=== PATIENT | male | born 1995 | race Caucasian/White ===

== ENCOUNTER 2021-06-29 17:54 | Outpatient (REF) | payer OTHER, SELFPAY ==
--- NOTE | ~2021-06-29 | MR_ITS ---
EXAMINATION: MR SHOULDER WITHOUT CONTRAST, RIGHT CLINICAL INFORMATION: Right shoulder pain and decreased range of motion. COMPARISON: None. TECHNIQUE: MRI of the shoulder without contrast was performed on a high-field scanner. FINDINGS: ROTATOR CUFF: Mild supraspinatus tendinosis with distal bursal surface partial tearing measuring 0.9 x 1.4 cm (AP by ML). No full-thickness rotator cuff tendon defect. No muscle atrophy or fatty infiltration. BICEPS: Normal. CORACOACROMIAL ARCH: The undersurface of the acromion is curved with no subacromial spur. Mild acromioclavicular arthrosis. LABRUM/CAPSULE: Normal. GLENOHUMERAL JOINT/MARROW: Mild degenerative cystic change within the greater tuberosity. MR/MR shoulder RT wo con IMPRESSION: 1. Mild supraspinatus tendinosis with distal bursal surface partial tearing measuring 0.9 x 1.4 cm (AP by ML). 2. Mild acromioclavicular arthrosis.
--- NOTE | ~2021-06-29 | MR_ITS ---
EXAMINATION: MR KNEE WITHOUT CONTRAST, LEFT CLINICAL INFORMATION: Left knee pain and numbness. COMPARISON: None. TECHNIQUE: MRI of the knee without contrast was performed using routine sequences on a high-field scanner. FINDINGS: MENISCI: Medial Meniscus: Intact. Lateral Meniscus: Intact. LIGAMENTS: Cruciate: Intact. Collateral: Intact. EXTENSOR MECHANISM: Intact. ARTICULAR CARTILAGE/BONE: Patellofemoral Compartment: Normal. Medial Compartment: Normal. Lateral Compartment: Normal. JOINT FLUID AND BURSAE: Normal. MR/MR knee LT wo con IMPRESSION: No acute meniscal or ligamentous injury. Unremarkable examination.
== END 2021-06-29 17:55 | disposition home or self-care (01) ==
LOC: HO.MRI 17:54
PROVIDERS: PCP Internal Medicine; Visit Provider Internal Medicine
DX: M25.511 Pain in right shoulder (principal); M25.562 Pain in left knee; G89.29 Other chronic pain
CPT/HCPCS: 73221; 73721

== ENCOUNTER 2021-09-10 07:07 | Outpatient (REF) | payer OTHER, SELFPAY ==
--- NOTE | ~2021-09-10 | XR_ITS ---
EXAMINATION: XR SHOULDER, RIGHT CLINICAL INFORMATION: Right shoulder pain. COMPARISON: 06/29/2021 TECHNIQUE: Three views of the right shoulder. FINDINGS: There is no evidence of acute fracture or dislocation of the right shoulder. Mild inferior spurring glenohumeral joint with joint space being maintained. No significant degenerative change of the acromioclavicular joint noted for some possible mild narrowing. No elevation of the coracoclavicular space. No evidence of calcific tendinitis. XR/XR shoulder RT min 2V IMPRESSION: No significant abnormality of the right shoulder identified.
== END 2021-09-10 07:08 | disposition home or self-care (01) ==
LOC: HO.HOSX 07:07
PROVIDERS: Visit Provider Physician Assistant
DX: M75.101 Unspecified rotator cuff tear or rupture of right shoulder, not specified as traumatic (principal); M12.811 Other specific arthropathies, not elsewhere classified, right shoulder
CPT/HCPCS: 73030; 99202; J1040

== ENCOUNTER 2022-06-24 22:14 | Emergency (ER) | payer OTHER, SELFPAY ==
[2022-06-24 22:25] VITALS: BP 103/68; PULSE 55; RESP 18; TEMP 36.6; O2SAT 98; BMI 26.6
== END 2022-06-25 01:07 | disposition left against medical advice (07) ==
LOC: HO.ED 06-25 01:04
PROVIDERS: Emergency Provider Emergency Medicine; PCP Internal Medicine
DX: S05.02XA Injury of conjunctiva and corneal abrasion without foreign body, left eye, initial encounter (principal); X58.XXXA Exposure to other specified factors, initial encounter; Y93.9 Activity, unspecified; Y92.9 Unspecified place or not applicable; Y99.9 Unspecified external cause status
CPT/HCPCS: 99281

== ENCOUNTER 2023-12-18 15:36 | Outpatient (AMB) | payer OTHER, SELFPAY ==
--- NOTE | 2023-12-18 16:26 | A.OFFPC_ITS ---
Vital Signs 12/18/23 16:28 Height 5 ft 6 in Weight 181 lb BMI 29.2 BP 100/64 Blood Pressure Location Lt brachial Position Sitting Pulse 62 Pulse Source Pulse Oximeter Pulse Oximetry (%) 97 Oxygen Delivery Method Room Air Intake Visit Reasons: Recurrent cold sores Intake Note: Pt is here today for recurrent cold sores Allergies Seasonal Allergies Allergy (Mild, Verified 12/21/23 18:06) hives Medication List - Last Reconciled 12/21/23 by Joanna Wells MD acyclovir 5% 1 appl topical 6XD 7 days valacyclovir 500 mg PO DAILY Tobacco use date assessed: 12/18/23 Dental Screening Dental Screen Date: 12/18/23 Did you have a dental visit in the last 12 months?: No Was dental information given to patient?: Patient has dentist HPI Recurrent cold sores HPI Details 28-year-old male with recurrent cold sor es, here needing refills on his valacyclovir and acyclovir ointment. He has been having recurrent cold sores now for several years, had frequent outbreaks when he tried stopping his medications. Has not had any other lesions other than on his lower lip. [facility] Medical History Recurrent cold sores Chronic right shoulder pain Left anterior knee pain Family History Paternal Grandfather Diabetes mellitus Social History Housing: House Alcohol intake: current Patient Tobacco Use Status: Never used Tobacco e-Cigarette/Vaping Use: Never Used Second Hand Smoke Exposure: No service: Yes Current occupational status: employed Current occupation: rt handed/ Cognitive needs: No Hearing needs: No Vision needs: No Questionnaire PHQ-9 Over the last 2 weeks, how often have you been bothered by any of the following problems? 1. Little interest or pleasure in doing things: not at all 2. Feeling down, depressed, or hopeless: not at all 3. Trouble falling or staying asleep, or sleeping too much: not at all 4. Feeling tired or having little energy: not at all 5. Poor appetite or overeating: not at all 6. Feeling bad about yourself - or that you are a failure or have let yourself or your family down: not at all 7. Trouble concentrating on things, such as reading the newspaper or watching television: not at all 8. Moving or speaking so slowly that other people could have noticed. Or the opposite - being so fidgety or restless that you have been moving around a lot more than usual: not at all 9. Thoughts that you would be better off or of hurting yourself in some way: not at all Total score: 0 Depression Screening Interpretation: Negative Depression Screening Done: Yes 25130 - PHQ-9 Billing: Yes Source: Developed by Drs. Leonel Pringle, Elinor Rene, Christiano Cook and colleagues, with an educational mao from [employer]. Thrive Questionnaire Date Thrive assessed: 12/18/23 I am a: Patient What is your living situation today?: I have a steady place to live Within the past 12 months, did the food you bought not last and you didn't have the money to get more?: Never true Within the past 12 months, did you worry whether your food would run out before you got money to buy more?: Never true Do you have trouble paying for medicines?: No Do you have trouble getting transportation to medical appointments?: No Do you have trouble paying your heating and electricity bill?: No Do you have trouble taking care of your child, family member or friend?: No Do you have trouble with day-to-day activities such as bathing, preparing meals, shopping, managing finances, etc.?: No Are you currently unemployed and looking for a job?: No Are you interested in more education?: No THRIVE Score: 0 AUDIT C Alcohol Use Questionnaire (AUDIT-C) 1. How often do you have a drink containing alcohol?: Monthly or less 2. How many drinks containing alcohol do you have on a typical day when you are drinking?: 1 or 2 3. How often do you have six or more drinks on one occasion?: Never Total Score: 1 JENNIFER-7 AMB Questionnaire JENNIFER-7 Date JENNIFER - 7 assessed: 12/18/23 Feeling nervous, anxious, or on edge: 0 = Not at all Not being able to stop or control worryin = Not at all Worrying too much about different things: 0 = Not at all Trouble relaxin = Not at all Being so restless that it is hard to sit still: 0 = Not at all Becoming easily annoyed or irritable: 0 = Not at all Feeling afraid as if something awful might happen: 0 = Not at all Total JENNIFER-7 score (0-4 normal; 5-9 mild; 10-14 moderate; 15-21 severe): 0 Source: Developed by Drs. Leonel Pringle, Elinor Rene, Christiano Cook and colleagues, with an educational mao from [employer]. JENNIFER-7 Assessment Billing JENNIFER-7 Assessment Tool: JENNIFER-7 Assessment 56739 Review of Systems Const Denies body aches Eyes Reports no additional complaints ENT Denies nasal congestion and Denies nasal discharge Card Denies chest pain, Denies lightheadedness and Denies dyspnea Resp Denies chest congestion, Denies cough, Denies dyspnea and Denies wheezing GI Denies abdominal pain, Denies change in bowel habits and Denies heartburn Reports no additional complaints, Denies dysuria, Denies urinary frequency and Denies urinary urgency Skin/Breast Reports as per HPI Endo Reports no additional complaints John/Lymph Denies easy bruising Aller/Immun Denies seasonal rhinorrhea and Denies wheezing Physical exam (Primary Care) Vital Signs: Last Vital Signs Pulse 62 12/18/23 16:28 BP 100/64 12/18/23 16:28 Pulse Ox 97 12/18/23 16:28 Oxygen Delivery Method Room Air 12/18/23 16:28 BMI result Body Mass Index 29.2 Tobacco/Smoking Status: Tobacco use Status Tobacco use date assessed 12/18/23 12/18/23 16:33 Patient Tobacco Use Status Never used Tobacco 12/18/23 16:33 e-Cigarette/Vaping Use Never Used 12/18/23 16:33 PHQ-9: PHQ-9 Score PHQ-9: Total score 0 12/18/23 16:43 Depression Screening Interpretation: Negative Thrive Assessment: Date of Thrive Assessment Date Thrive assessed 12/18/23 12/18/23 16:33 Const General: comfortable, no acute distress and alert Nutritional Appearance: average body habitus Orientation/consciousness: patient oriented x3 HENMT Mouth: Normal oral and palatal mucosa present, oropharynx normal and moist mucous membranes Neck Neck: Yes full ROM, Yes no lymphadenopathy and Yes supple Skin General skin exam: no rashes or lesions noted Neuro General: patient oriented x3 Assessment and Plan Assessment & Plan (1) Recurrent cold sores: Code(s): 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 Plan: Refill sent for valacyclovir and acyclovir ointment, advised to also start taking lysine supplement that may help slow down her prevent growth of herpes simplex type 1 virus Medications: Refilled acyclovir 5% 1 appl topical 6XD 7 days 15 grams 6RF 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 valacyclovir 500 mg PO DAILY 90 tabs 4RF 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 acyclovir 5% 1 appl topical 6XD 7 days 15 grams 6RF 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 valacyclovir 500 mg PO DAILY 90 tabs 4RF 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
[2023-12-18 16:28] VITALS: BP 100/64; PULSE 62; O2SAT 97; BMI 29.2
== END 2023-12-18 17:00 | disposition home or self-care (01) ==
PROVIDERS: PCP Internal Medicine; Visit Provider Internal Medicine
DX: B00.1 Herpesviral vesicular dermatitis (principal)
CPT/HCPCS: 99213

== ENCOUNTER 2025-06-02 09:09 | Outpatient (AMB) | payer OTHER, SELFPAY ==
--- NOTE | 2025-06-02 09:12 | A.OFFPC_ITS ---
Vital Signs 06/02/25 09:13 Height 5 ft 6 in Weight 176 lb 4 oz BMI 28.4 BP 118/78 Blood Pressure Location Lt brachial Position Sitting Respiration 16 Pulse 55 Pulse Source Pulse Oximeter Temp 98.4 F Temp Source Oral Pulse Oximetry (%) 97 Oxygen Delivery Method Room Air Intake Visit Reasons: fatique Intake Note: Pt is coming in for fatigue . Psych Coordinator Required: No Accompanied by: Self / Same As Patient Allergies Seasonal Allergies Allergy (Mild, Verified 06/04/25 01:56) hives Medication List - Last Reconciled 06/02/25 by Joanna Wells MD acyclovir 5% 1 appl topical 6XD 7 days valacyclovir 500 mg PO DAILY Tobacco use date assessed: 06/02/25 Dental Screening Dental Screen Date: 12/18/23 Did you have a dental visit in the last 12 months?: No Did you have a dental problem in the last 6 months where you did not have access to dental care?: No Was dental information given to patient?: Patient declined HPI bishop HPI Details - The patient is a 30-year-old male pres enting with chronic fatigue and associated symptoms. - Reports persistent fatigue since deplo yment in [place], characterized by full body exhaustion and unrelieved by rest. - Exposure to environmental hazards such as burn pits and black mold during d eployment in [facility]. - Accompanied by muscle and joint sorene ss, and brain fog affecting daily activities. - Contracted COVID-19 during deployment, even after he received the vaccine, but no specific treatment was administered. - Denies history of malaria or other sig nificant illnesses during deployment. - Reports migraines since deployment. - Experiences acid reflux, particularly with spicy foods and when lying down after meals. - Uses [id number] antacids and adv ised to avoid trigger foods. -went to help in [place] las t month complaining of same symptoms of fatigue and had labs done there which showed normal CBC, comprehensive metabolic panel and tested negative for Lyme disease. He was noted however to have low vitamin-D level, but not on any vitamin-D supplements at present time. [facility] Medical History (Updated 06/04/25 @ 02:06 by Joanna Wells MD) Heartburn symptom Fatigue Recurrent cold sores Chronic right shoulder pain Surgical History (Updated 06/04/25 @ 01:58 by Joanna Wells MD) No pertinent past surgical history Family History Paternal Grandfather Diabetes mellitus Social History Housing: House Alcohol intake: current Patient Tobacco Use Status: Never used Tobacco e-Cigarette/Vaping Use: Never Used Second Hand Smoke Exposure: No service: Yes Current occupational status: employed Current occupation: rt handed/ Cognitive needs: No Hearing needs: No Vision needs: No Questionnaire PHQ-9 Over the last 2 weeks, how often have you been bothered by any of the following problems? 1. Little interest or pleasure in doing things: several days 2. Feeling down, depressed, or hopeless: not at all 3. Trouble falling or staying asleep, or sleeping too much: more than half the days 4. Feeling tired or having little energy: more than half the days 5. Poor appetite or overeating: several days 6. Feeling bad about yourself - or that you are a failure or have let yourself or your family down: not at all 7. Trouble concentrating on things, such as reading the newspaper or watching television: more than half the days 8. Moving or speaking so slowly that other people could have noticed. Or the opposite - being so fidgety or restless that you have been moving around a lot more than usual: several days 9. Thoughts that you would be better off or of hurting yourself in some way: not at all Total score: 9 Depression Screening Interpretation: Negative Depression Screening Done: Yes 27445 - PHQ-9 Billing: Yes Source: Developed by Drs. Leonel Pringle, Elinor Rene, Christiano Cook and colleagues, with an educational mao from [employer]. Thrive Questionnaire Date Thrive assessed: 12/18/23 I am a: Patient What is your living situation today?: I choose not to answer this question Within the past 12 months, did the food you bought not last and you didn't have the money to get more?: I choose not to answer this question Within the past 12 months, did you worry whether your food would run out before you got money to buy more?: I choose not to answer this question Do you have trouble paying for medicines?: No Do you have trouble getting transportation to medical appointments?: No Do you have trouble paying your heating and electricity bill?: No Do you have trouble taking care of your child, family member or friend?: I choose not to answer this question Do you have trouble with day-to-day activities such as bathing, preparing meals, shopping, managing finances, etc.?: I choose not to answer this question Are you currently unemployed and looking for a job?: I choose not to answer this question Are you interested in more education?: I choose not to answer this question Please select the resources that you would like help with: None Currently or been in a relationship where the following occur: I choose not to answer THRIVE Score: 0 AUDIT C Alcohol Use Questionnaire (AUDIT-C) 1. How often do you have a drink containing alcohol?: 2-3 times a week 2. How many drinks containing alcohol do you have on a typical day when you are drinking?: 1 or 2 3. How often do you have six or more drinks on one occasion?: Never Total Score: 3 JENNIFER-7 AMB Questionnaire JENNIFER-7 Date JENNIFER - 7 assessed: 06/02/25 Feeling nervous, anxious, or on edge: 1 = Several days Not being able to stop or control worryin = Not at all Worrying too much about different things: 1 = Several days Trouble relaxin = Several days Being so restless that it is hard to sit still: 0 = Not at all Becoming easily annoyed or irritable: 1 = Several days Feeling afraid as if something awful might happen: 0 = Not at all Total JENNIFER-7 score (0-4 normal; 5-9 mild; 10-14 moderate; 15-21 severe): 4 Source: Developed by Drs. Leonel Pringle, Elinor Rene, Christiano Cook and colleagues, with an educational mao from [employer]. JENNIFER-7 Assessment Billing JENNIFER-7 Assessment Tool: JENNIFER-7 Assessment 06674 Review of Systems Const Reports no additional complaints Eyes Reports no additional complaints ENT Denies nasal congestion and Denies nasal discharge Card Denies chest pain, Denies lightheadedness and Denies dyspnea Resp Denies chest congestion, Denies cough, Denies dyspnea and Denies wheezing GI Reports as per HPI, Denies abdominal pain and Denies change in bowel habits Reports no additional complaints, Denies dysuria, Denies urinary frequency and Denies urinary urgency Musc Reports as per HPI Skin/Breast Reports as per HPI Neuro Reports as per HPI Psych Reports no additional complaints Endo Reports no additional complaints John/Lymph Denies easy bruising Aller/Immun Denies seasonal rhinorrhea and Denies wheezing Physical exam (Primary Care) Vital Signs: Last Vital Signs Temp 98.4 F 06/02/25 09:13 Pulse 55 06/02/25 09:13 Resp 16 06/02/25 09:13 BP 118/78 06/02/25 09:13 Pulse Ox 97 06/02/25 09:13 Oxygen Delivery Method Room Air 06/02/25 09:13 BMI result Body Mass Index 28.4 Tobacco/Smoking Status: Tobacco use Status Tobacco use date assessed 06/02/25 06/02/25 09:24 Patient Tobacco Use Status Never used Tobacco 06/02/25 09:24 e-Cigarette/Vaping Use Never Used 06/02/25 09:24 PHQ-9: PHQ-9 Score PHQ-9: Total score 16 06/02/25 10:09 Depression Screening Interpretation: Negative Thrive Assessment: Date of Thrive Assessment Date Thrive assessed 12/18/23 06/02/25 09:24 Currently or been in a relationship where the following occur: I choose not to answer Const General: no acute distress and alert Nutritional Appearance: average body habitus Orientation/consciousness: patient oriented x3 HENMT Mouth: Normal oral and palatal mucosa present, oropharynx normal and moist mucous membranes Neck Neck: Yes full ROM, Yes no lymphadenopathy and Yes supple Chest Chest palpation & inspection: normal inspection of the chest Resp Auscultation: clear to auscultation bilaterally Cardio Rate: bradycardic Rhythm: regular rhythm Heart sounds: S1 normal heart sound present, S2 normal heart sound present and no murmurs GI Palpation (GI): Soft to palpation, nontender, no guarding and no masses Auscultation: normal bowel sounds General: Yes no CVA tenderness Back/Spine/Pelvis Back: no CVA tenderness Skin General skin exam: no rashes or lesions noted Neuro General: patient oriented x3 Extrem General: Yes normal to inspection, Yes full ROM, Yes no joint enlargement, Yes no pedal edema and Yes normal gait Psych Appearance: grossly normal and well kempt Mental Status: mental status grossly normal Speech and movement: Normal speech and movement present Affect: normal affect Coding Level of Care Code Est Pt Level 4 (03983) Diagnoses Chronic fatigue R53.82 Fatigue type: chronic, unspecified Heartburn symptom R12 Additional Codes JENNIFER-7 Assessment Billing - JENNIFER-7 Assessment Tool: JENNIFER-7 Assessment 01289 ([id number]) PHQ-9 - 36252 - PHQ-9 Billing: Yes ([id number]) Assessment & Plan Assessment & Plan (1) Fatigue: Code(s): R53.83 - Other fatigue Category: Medical Qualifiers: Fatigue type: chronic, unspecified Qualified Code(s): R53.82 - Chronic fatigue, unspecified (2) Heartburn symptom: Code(s): R12 - Heartburn Category: Medical Plan The patient will undergo further blood work to evaluate chronic fatigue, i ncluding testosterone levels and other relevant tests. Management of acid reflux includes dietary modifications to avoid trigger foods and the use of famotidine as needed. The patient is advised to schedule a physical exam for the following year and to follow up with any new or worsening symptoms. Patient was informed and verbally consented to the use of an ambient scribe for clinic note documentation during this visit. Orders: Orders Vitamin D 25-OH Total Today R53.83 - Other fatigue Vitamin B6 Today R53.83 - Other fatigue TSH reflex Free T4 Today R53.83 - Other fatigue Testosterone, Free/Total Today R53.83 - Other fatigue Monotest Today R53.83 - Other fatigue Complete Blood Count Auto Diff Today R53.83 - Other fatigue Vitamin B12 and Folate Today R53.83 - Other fatigue Medications: New famotidine 40 mg PO BEDTIME 30 tabs 3RF
[2025-06-02 09:13] VITALS: BP 118/78; PULSE 55; RESP 16; TEMP 36.9; O2SAT 97; BMI 28.4
--- OUTSIDE RECORDS SUMMARY | 2025-06-02 09:40 | XMS_ITS | Clinical Summary ---
Author Organization [facility] [address] [facility] [address] Address [address] [place] [address] Phone Care Team Providers Care Waterproofer Name Role Phone Unavailable Primary Care Provider Unavailabl e Allergies No known active allergies Medications acyclovir (ZOVIRAX) 5 % ointment Apply topically as needed. Active valACYclovir (VALTREX) 500 mg tablet Take 1 tablet (500 mg total) by mouth daily. Active Active Problems Problem Noted Date Diagnosed Date Back pain, unspecified back location, unspecified back pain laterality, unspecified chronicity 06/13/2024 Social History Tobacco Use Types Packs/Day Years Used Date Smoking Tobacco: Never Assessed [facility] Utilities Answer Date Recorded In the past 12 months has [employer], gas, oil, or water [employer] threatened to shut off services in your home? No 06/15/2024 AUDIT-C Answer Date Recorded Q1: How often do you have a drink containing alc ohol? 2-3 times a week 06/14/2024 Q2: How many drinks containi ng alcohol do you have on a typical day when you are drinking? 1 or 2 06/14/2024 Q3: How often do you have si x or more drinks on one occasion? Never 06/14/2024 PHQ-2 Answer Date Recorded PHQ-2 Total Score 0 06/14/2024 Hunger Vital Sign Answer Date Recorded Within the past 12 months, y ou worried that your food would run out before you got the money to buy more. Never true 06/15/20 24 Within the past 12 months, t he food you bought just didn't last and you didn't have money to get more. Never true 06/15/2024 PRAPARE - Transportation Answer Date Re corded In the past 12 months, has l ack of transportation kept you from medical appointments or from getting medications? No 04/2024 In the past 12 months, has l ack of transportation kept you from meetings, work, or from getting things needed for daily living? No 06/15/2024 Housing Stability Answer Date Recorded What is your living situation today? I have a [place] place to live 06/15/2024 Housing Stability Not on file 06/15/2024 Interpersonal Safety Answer Date Record ed Is there anyone in your life that is hurting or threatening you in anyway? no 06/13/2024 Physical Indicators of Abuse No evidence of phys ical abuse 06/13/2024 Sex and Gender Information Value Date Recorded Sex Assigned at Not on file Legal Sex Male 10:55 AM EDT Gender Identity Not on file Sexual Orientation Not on file Last Filed Vital Signs Vital Sign Reading Time Taken Comments Blood Pressure 121/62 06/16/2024 7:43 AM EDT Pulse 62 06/16/2024 7:43 AM EDT Temperature 36.2 C (97.2 F) 06/16/2024 7:43 AM EDT Respiratory Rate 18 06/16/2024 7:43 AM EDT Oxygen Saturation 96% 06/16/2024 7:43 AM EDT Inhaled Oxygen Concentration - - Weight 74.8 kg (165 lb) 06/14/2024 1:28 AM EDT Height 167.6 cm (5' 6 ) 06/14/2024 1:28 AM EDT Body Mass Index 26.63 06/14/2024 1:28 AM EDT Plan of Treatment Health Maintenance Due Date Last Done Comments HIV screening 2006 Hepatitis C screening 2011 Covid-19 vaccine series ( season) 2024 02/03/2021, 01/06/2021 Tetanus adult (Td q 10,TDAP once) 04/24/2025 04/24/2015 Influenza vaccine 07/11/2025 12/15/2021, , 10/19/2019, Additional history exists RSV Immunization (1 - 1-dose 75+ series) 2068 Meningococcal Vaccine Aged Out 12/22/2019, 015 No longer eligible based on patient's age to complete this topic Pneumococcal Vaccine (2 - 49 years) Aged Out No longer eligible based on patient's age to complete this topic Insurance Advance Directives * Full Code (Latest Code Status on File) Date Activated Date Inactivated Comments 06/13/2024 9:39 PM 06/16/2024 6:18 PM Question Answer Comments With Whom was the Code Status Discussed? Patient
--- OUTSIDE RECORDS SUMMARY | 2025-06-02 09:40 | XMS_ITS | Clinical Summary ---
Author Organization [facility] Address [address] [place] [id number] Phone Care Team Providers Care Safety Fire Boss Name Role Phone Joanna Wells MD Primary Care Provider Allergies No known active allergies Medications fexofenadine (DAVID) 180 MG tablet Take 180 mg by mouth daily. Active Social History Tobacco Use Types Packs/Day Years Used Date Smoking Tobacco: Never Smokeless Tobacco: Never Alcohol Use Standard Drinks/Week Comments Never 0 (1 standard drink = 0.6 oz pur e alcohol) Education Answer Date Recorded Are you interested in more education? Not on payton e 03/08/2023 Are you concerned about learning? Not on file 03/08/2023 No 03/08/2023 No 03/08/2023 Digital Access Answer Date Recorded No 04/08/2023 No 04/08/2023 Reliable internet access at home? Not on file 04/08/2023 Device with a working camera? Not on file Sex and Gender Information Value Date Recorded Sex Assigned at Not on file Legal Sex Male 8:54 AM EDT Gender Identity Not on file Sexual Orientation Not on file Last Filed Vital Signs Vital Sign Reading Time Taken Comments Blood Pressure 130/72 09/02/2021 9:02 AM EDT Pulse 54 09/02/2021 9:02 AM EDT Temperature 36.4 C (97.5 F) 09/02/2021 9:02 AM EDT Respiratory Rate 18 09/02/2021 9:02 AM EDT Oxygen Saturation 98% 09/02/2021 9:02 AM EDT Inhaled Oxygen Concentration - - Weight - - Height - - Body Mass Index - - Plan of Treatment Not on file Medical Devices Not on file Insurance [facility] Address: [address] [id number] Care Teams Safety Fire Boss Relationship Specialty Start Date End Date Joanna eWlls MD [address] [place] [address] PCP - General Internal Medicine 09/02/21 Additional Source Comments The information contained in this document represents components of the legal health record. It is not the complete legal health record.[facility]
--- OUTSIDE RECORDS SUMMARY | 2025-06-02 09:40 | XMS_ITS | Clinical Summary ---
Author Organization [facility] Address [address] [place] [address] Care Team Providers Care Certified Ophthalmic Technologist Name Role Phone Joanna Wells MD Primary Care Provider Allergies No known active allergies Medications * This document contains information received from the source organization and may not represent a complete record from that organization. EPINEPHrine 0.3 mg/0.3 mL IJ auto-injection Inject 0.3 mL (0.3 mg total) into the shoulder, thigh, or buttocks once as needed for anaphylaxis. 2 Device 9 Active valACYclovir (VALTREX) 500 MG tablet Take 500 mg by mouth daily. Active fexofenadine (DAVID) 180 MG tablet Take 180 mg by mouth daily. Active acyclovir (ZOVIRAX) 5 % ointment Apply 1 each topically as needed. Active Social History Tobacco Use Types Packs/Day Years Used Date Smoking Tobacco: Never Passive Smoke Exposure: Never Smokeless Tobacco: Never Tobacco Cessation:Counseling Given: Not Answered Sex and Gender Information Value Date Recorded Sex Assigned at Not on file Legal Sex Male 10:41 PM EDT Gender Identity Not on file Sexual Orientation Not on file Last Filed Vital Signs Vital Sign Reading Time Taken Comments Blood Pressure 117/75 04/30/2024 6:54 PM EDT Pulse 69 04/30/2024 6:54 PM EDT Temperature 36.8 C (98.2 F) 04/30/2024 6:54 PM EDT Respiratory Rate 18 02/14/2019 1:02 AM EDT Oxygen Saturation 97% 04/30/2024 6:54 PM EDT Inhaled Oxygen Concentration - - Weight 72.6 kg (160 lb) 04/30/2024 6:54 PM EDT Height 167.6 cm (5' 6 ) 04/30/2024 6:54 PM EDT Body Mass Index 25.82 04/30/2024 6:54 PM EDT Plan of Treatment Health Maintenance Due Date Last Done Comments Hepatitis C Virus Screening 1993 HIV Screening 2006 DTaP/Tdap/Td Vaccines (1 - Tdap) 2012 Hepatitis B Vaccines (1 of 3 - 19+ 3-dose series) 2012 COVID-19 Vaccine ( - 2023-2 5 season) 2024 Influenza Vaccine 06/10/2025 HPV Vaccines Aged Out No longer eligi ble based on patient's age to complete this topic Pneumococcal Vaccine: Pediat lexi (0-5 Years) and At-Risk Patients (6 to 49 Years) Aged Out No longer eligible b ased on patient's age to complete this topic Insurance [facility] [employer] [facility] Care Teams Certified Ophthalmic Technologist Relationship Specialty Start Date End Date Joanna Wells MD [address] [place] [address] PCP - General Internal Medicine 04/30/24
== END 2025-06-02 11:03 | disposition home or self-care (01) ==
LOC: HO.HMCC 09:10
PROVIDERS: PCP Internal Medicine; Visit Provider Internal Medicine
DX: R53.82 Chronic fatigue, unspecified (principal); R12 Heartburn

== ENCOUNTER → 2025-06-02 09:09 | Outpatient (BNVA) | payer OTHER, SELFPAY | PROVIDERS: PCP Internal Medicine; Visit Provider Internal Medicine | DX: R53.82 Chronic fatigue, unspecified (principal); R12 Heartburn | CPT/HCPCS: 96127; 99212 ==

== ENCOUNTER 2025-10-18 13:38 | Outpatient (AMB) | payer OTHER, SELFPAY ==
[2025-10-18 13:43] VITALS: BP 110/70; PULSE 77; RESP 16; TEMP 36.7; O2SAT 99; BMI 29.2
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
--- OUTSIDE RECORDS SUMMARY | 2025-10-18 19:21 | XMS_ITS | Clinical Summary ---
Author Organization [facility] Address [address] [place] [address] Care Team Providers Care Delivery Driver Name Role Phone Joanna Wells MD Primary [...] of 3 - 19+ 3-dose series) 2012 Influenza Vaccine 06/10/2025 COVID-19 Vaccine ( - 2023-2 5 season) 2025 HPV Vaccines (No Doses Required) Completed Pneumococcal Vaccine: Pediat lexi (0-5 Years) and At-Risk Patients (6 to 49 Years) Aged Out No longer eligible b ased on patient's age to complete this topic Insurance [employer] [facility] Care Teams Delivery Driver Relationship Specialty Start Date End Date Joanna Wells MD [address] [place] [address] PCP - General Internal Medicine 04/30/24
--- OUTSIDE RECORDS SUMMARY | 2025-10-18 19:22 | XMS_ITS | Clinical Summary ---
Author Organization [facility] [address] [facility] Address [address] [place] [address] Phone Care Team Providers Care Felt Cutting Machine Operator Name Role Phone Unavailable Primary Care Provider [...] Years Used Date Smoking Tobacco: Never Assessed [facility] Utilities Answer Date Recorded In the past 12 months has Crunched, gas, oil, or water [employer]pire threatened to shut off services in your [...] HIV screening 2006 Hepatitis C screening 2011 Tetanus adult (Td q 10,TDAP once) 04/24/2025 04/24/2015 Influenza vaccine 06/10/2025 12/15/2021, , 10/19/2019, Additional history exists Covid-19 vaccine series ( season) 2025 02/03/2021, 01/06/2021 RSV Immunization (1 - 1-dose 75+ series) 2068 Meningococcal Vaccine Aged Out 12/22/2019, 015 No longer eligible based on patient's age to complete this topic Meningococcal B Vaccine Aged Out No l onger eligible based on patient's age to complete this topic Pneumococcal Vaccine (2 - 49 years) Aged Out No longer eligible based on patient's age to complete this topic Insurance ARE ARE ARE Advance Directives * Full Code (Latest Code Status on File) Date Activated Date Inactivated Comments 06/13/2024 9:39 PM 06/16/2024 6:18 PM Question Answer Comments With Whom was the Code Status Discussed? Patient
--- OUTSIDE RECORDS SUMMARY | 2025-10-18 19:22 | XMS_ITS | Clinical Summary ---
Author Organization [facility] Address [address] [place] [id number] Phone Care Team Providers Care Medical Historian Name Role Phone Joanna Wells MD Primary [...] Not on file Insurance [facility] Address: [address] [address] Care Teams Medical Historian Relationship Specialty Start Date End Date Joanna Wells MD [address] [place] [address] PCP - General Internal Medicine 09/02/21 Additional Source Comments The information contained in this document represents components of the legal health record. It is not the complete legal health record.[facility]
--- OUTSIDE RECORDS SUMMARY | 2025-10-18 19:22 | XMS_ITS ---
Author Name [facility] Organization Unknown Results Test Name/Text Value Interpretation Date Range Source MCV RBC Auto 89.3 fL Normal 06/16/2024 80 - [address] Platelet # Bld Auto 206.0 x1000/uL Normal 06/16/2024 150 - 420 [facility] Basophils # Bld Auto 0.01 x 1000/uL Normal 06/16/2024 0 - 1 [facility] Monocytes/leuk NFr Bld Auto 6.0 % Normal 06/16/2024 4 - 12 [facility] Lymphocytes # Bld Auto 1.09 x 1000/uL Normal 06/16/2024 0.6 - 3.7 [facility] WBC # Bld Auto 8.2 x1000/uL Normal 06/16/2024 4 - 11 [facility] MCH RBC Qn Auto 30.6 pg Normal 06/16/2024 27 - 33 [facility] MCHC RBC Auto-mCnc 34.3 g/dL Normal 06/16/2024 31 - 36 [facility] Eosinophil # Bld Auto 0.0 x 1000/uL Normal 06/16/2024 0 - 1 [facility] Eosinophil/leuk NFr Bld Auto 0.0 % Normal 06/16/2024 0 - 5 [facility] Neutrophils/leuk NFr Bld Auto 80.1 % Above high normal 06/16/2024 39 - 72 [facility] Hgb Bld-mCnc 13.7 g/dL Normal 06/16/2024 13.2 - 17.1 [facility] Monocytes # Bld Auto 0.49 x 1000/uL Normal 06/16/2024 0 - 1 [facility] nRBC # Bld Auto 0.0 x 1000/uL Normal 06/16/2024 0 - 1 [facility] Hct VFr Bld Auto 40.0 % Normal 06/16/2024 38.5 - 50 [facility] Lymphocytes/leuk NFr Bld Auto 13.3 % Below low normal 06/16/2024 17 - 50 [facility] Basophils/leuk NFr Bld Auto 0.1 % Normal 06/16/2024 0 - 1.4 [facility] RDW RBC Auto-Rto 11.9 % Normal 06/16/2024 11 - 15 [facility] RBC # Bld Auto 4.48 M/uL Normal 06/16/2024 4 - 6 [facility] PMV Bld Auto 9.6 fL Normal 06/16/2024 8 - [address] Neutrophils # Bld Auto 6.55 x 1000/uL Normal 06/16/2024 2 - 7.6 [facility] Imm Granulocytes/leuk NFr Bld Auto 0.5 % Normal 06/16/2024 0 - 1 [facility] nRBC/100 WBC Bld Auto-Rto 0.0 % Normal 06/16/2024 0 - 1 [facility] Imm Granulocytes # Bld Auto 0.04 x 1000/uL Normal 06/16/2024 0 - 0.3 [facility] GFR/BSA.pred SerPlBld WFL-VTD-VlTKli >60.0 mL/min/1.73m2 Normal 06/16/2024 - [facility] Bilirub SerPl-mCnc 0.7 mg/dL Normal 06/16/2024 - 1 [facility] Potassium SerPl-sCnc 4.0 mmol/L Normal 06/16/2024 3.5 - 5 .1 [facility] Chloride SerPl-sCnc 108.0 mmol/L Above high normal 98 - 107 [facility] ALT SerPl w/o P-5'-P-cCnc 19.0 U/L Normal 06/16/2024 16 - 61 [facility] Creat SerPl-mCnc 0.93 mg/dL Normal 06/16/2024 0.7 - 1.3 [facility] AST SerPl w P-5'-P-cCnc 7.0 U/L Below low normal 06/16/2024 15 - 37 [facility] Prot SerPl-mCnc 6.6 g/dL Normal 06/16/2024 6.4 - 8.2 [facility] Glucose SerPl-mCnc 108.0 mg/dL Normal 06/16/2024 65 - 110 [facility] Albumin SerPl BCG-mCnc 3.3 g/dL Below low normal 06/16/2024 3.4 - 5 [facility] Globulin Plas-mCnc 3.3 g/dL Normal 06/16/2024 2.5 - 5 [facility] ALP SerPl-cCnc 36.0 U/L Below low normal 06/16/2024 45 - 11 7 [facility] HCO3 SerPl-sCnc 28.0 mmol/L Normal 06/16/2024 21 - 32 [facility] Sodium SerPl-sCnc 140.0 mmol/L Normal 06/16/2024 136 - 14 5 [facility] Calcium SerPl-mCnc 8.8 mg/dL Normal 06/16/2024 8.5 - 10.1 [facility] Anion Gap3 SerPl-sCnc 4.0 mmol/L Below low normal 06/16/2024 5 - 15 [facility] BUN SerPl-mCnc 17.0 mg/dL Normal 06/16/2024 7 - 18 [facility] Magnesium SerPl-mCnc 2.1 mg/dL Normal 06/16/2024 1.6 - 2. 6 [facility] Phosphate SerPl-mCnc 3.9 mg/dL Normal 06/16/2024 2.5 - 4. 9 [facility] Potassium SerPl-sCnc 4.8 mmol/L Normal 06/14/2024 3.5 - 5 .1 [facility] Chloride SerPl-sCnc 107.0 mmol/L Normal 06/14/2024 98 - 1 07 [facility] Calcium SerPl-mCnc 9.2 mg/dL Normal 06/14/2024 8.5 - 10.1 [facility] BUN SerPl-mCnc 15.0 mg/dL Normal 06/14/2024 7 - 18 [facility] Creat SerPl-mCnc 1.15 mg/dL Normal 06/14/2024 0.7 - 1.3 Y [facility] GFR/BSA.pred SerPlBld HPB-ZWV-EeTHhg >60.0 mL/min/1.73m2 Normal 06/14/2024 - [facility] Glucose SerPl-mCnc 140.0 mg/dL Above high normal 06/14/2024 65 - 110 [facility] Sodium SerPl-sCnc 140.0 mmol/L Normal 06/14/2024 136 - 14 5 [facility] HCO3 SerPl-sCnc 27.0 mmol/L Normal 06/14/2024 21 - 32 [facility] Anion Gap3 SerPl-sCnc 6.0 mmol/L Normal 06/14/2024 5 - 15 [facility] Basophils # Bld Auto 0.01 x 1000/uL Normal 06/14/2024 0 - 1 [facility] Imm Granulocytes/leuk NFr Bld Auto 0.3 % Normal 06/14/2024 0 - 1 [facility] RDW RBC Auto-Rto 12.2 % Normal 06/14/2024 11 - 15 [facility] Basophils/leuk NFr Bld Auto 0.1 % Normal 06/14/2024 0 - 1.4 [facility] Monocytes # Bld Auto 0.36 x 1000/uL Normal 06/14/2024 0 - 1 [facility] Neutrophils/leuk NFr Bld Auto 87.3 % Above high normal 06/14/2024 39 - 72 [facility] Hgb Bld-mCnc 14.8 g/dL Normal 06/14/2024 13.2 - 17.1 [facility] Lymphocytes/leuk NFr Bld Auto 8.4 % Below low normal 06/14/2024 17 - 50 [facility] Monocytes/leuk NFr Bld Auto 3.9 % Below low normal 06/14/2024 4 - 12 [facility] Platelet # Bld Auto 272.0 x1000/uL Normal 06/14/2024 150 - 420 [facility] Eosinophil/leuk NFr Bld Auto 0.0 % Normal 06/14/2024 0 - 5 [facility] WBC # Bld Auto 9.3 x1000/uL Normal 06/14/2024 4 - 11 [facility] nRBC/100 WBC Bld Auto-Rto 0.0 % Normal 06/14/2024 0 - 1 [facility] Imm Granulocytes # Bld Auto 0.03 x 1000/uL Normal 06/14/2024 0 - 0.3 [facility] MCH RBC Qn Auto 30.3 pg Normal 06/14/2024 27 - 33 [facility] nRBC # Bld Auto 0.0 x 1000/uL Normal 06/14/2024 0 - 1 [facility] Lymphocytes # Bld Auto 0.78 x 1000/uL Normal 06/14/2024 0.6 - 3.7 [facility] RBC # Bld Auto 4.89 M/uL Normal 06/14/2024 4 - 6 [facility] Hct VFr Bld Auto 44.2 % Normal 06/14/2024 38.5 - 50 [facility] MCHC RBC Auto-mCnc 33.5 g/dL Normal 06/14/2024 31 - 36 [facility] Eosinophil # Bld Auto 0.0 x 1000/uL Normal 06/14/2024 0 - 1 [facility] PMV Bld Auto 10.0 fL Normal 06/14/2024 8 - [address] MCV RBC Auto 90.4 fL Normal 06/14/2024 80 - [address] Neutrophils # Bld Auto 8.11 x 1000/uL Above high normal 06/14/2024 2 - 7.6 [facility] B burgdor.VlsE1+pepC10 Ab Ser IA-aCnc 0.52 LI Normal 06/15/2024 - [facility] B burgdor.VlsE1+pepC10 IgG+IgM Ser Ql IA Negative Normal 06/15/2024 - [facility] BKR REFLEX URINE CULTURE See Comment Normal 06/14/2024 [facility] RBC #/area UrnS Auto 3.0 /HPF Above high normal 06/13/2024 0 - 2 [facility] Hyaline Casts #/area UrnS 2.0 /LPF Normal 06/13/2024 0 - 3 [facility] WBC #/area UrnS Auto <1.0 /HPF Normal 06/13/2024 0 - 5 [facility] Glucose Ur Strip.auto-mCnc Negative Normal 06/13/2024 - [facility] Sp Gr Ur Refract.auto 1.023 Normal 06/13/2024 1.005 - 1.03 [facility] Ketones Ur Strip.auto-mCnc Negative Normal 06/13/2024 - [facility] Color Ur Auto Yellow Normal 06/13/2024 - [facility] Urobilinogen Ur Strip-mCnc <2.0 mg/dL Normal 06/13/2024 - [facility] Hgb Ur Ql Strip.auto Negative Normal 06/13/2024 - [facility] Nitrite Ur Ql Strip.auto Negative Normal 06/13/2024 - [facility] Bilirub Ur Ql Strip.auto Negative Normal 06/13/2024 - [facility] pH Ur Strip.auto 7.5 Normal 06/13/2024 5.5 - 7.5 [facility] Prot Ur Strip.auto-mCnc Negative Normal 06/13/2024 - [facility] Clarity Ur Refract.auto Cloudy Abnormal 06/13/2024 - [facility] WBC # Ur Strip Negative Normal 06/13/2024 - [facility] CRP SerPl HS-mCnc 0.34 mg/dL Above high normal 06/14/2024 - 0.3 [facility] Prot SerPl-mCnc 7.3 g/dL Normal 06/13/2024 6.4 - 8.2 [facility] Chloride SerPl-sCnc 107.0 mmol/L Normal 06/13/2024 98 - 1 07 [facility] Sodium SerPl-sCnc 141.0 mmol/L Normal 06/13/2024 136 - 14 5 [facility] Bilirub SerPl-mCnc 0.7 mg/dL Normal 06/13/2024 - 1 [facility] Calcium SerPl-mCnc 9.0 mg/dL Normal 06/13/2024 8.5 - 10.1 [facility] Potassium SerPl-sCnc 3.7 mmol/L Normal 06/13/2024 3.5 - 5 .1 [facility] Globulin Plas-mCnc 3.4 g/dL Normal 06/13/2024 2.5 - 5 [facility] HCO3 SerPl-sCnc 29.0 mmol/L Normal 06/13/2024 21 - 32 [facility] AST SerPl w P-5'-P-cCnc 22.0 U/L Normal 06/13/2024 15 - 37 [facility] ALP SerPl-cCnc 66.0 U/L Normal 06/13/2024 45 - 117 [facility] GFR/BSA.pred SerPlBld JRI-KDS-EfFYsc >60.0 mL/min/1.73m2 Normal 06/13/2024 - [facility] Glucose SerPl-mCnc 96.0 mg/dL Normal 06/13/2024 65 - 110 [facility] ALT SerPl w/o P-5'-P-cCnc 27.0 U/L Normal 06/13/2024 16 - 61 [facility] Anion Gap3 SerPl-sCnc 5.0 mmol/L Normal 06/13/2024 5 - 15 [facility] Albumin SerPl BCG-mCnc 3.9 g/dL Normal 06/13/2024 3.4 - 5 [facility] Creat SerPl-mCnc 1.07 mg/dL Normal 06/13/2024 0.7 - 1.3 [facility] BUN SerPl-mCnc 16.0 mg/dL Normal 06/13/2024 7 - 18 [facility] MCHC RBC Auto-mCnc 34.3 g/dL Normal 06/13/2024 31 - 36 [facility] nRBC/100 WBC Bld Auto-Rto 0.0 % Normal 06/13/2024 0 - 1 [facility] MCH RBC Qn Auto 30.9 pg Normal 06/13/2024 27 - 33 [facility] MCV RBC Auto 89.9 fL Normal 06/13/2024 80 - [address] PMV Bld Auto 9.6 fL Normal 06/13/2024 8 - [address] Hgb Bld-mCnc 14.1 g/dL Normal 06/13/2024 13.2 - 17.1 [facility] Imm Granulocytes/leuk NFr Bld Auto 0.3 % Normal 06/13/2024 0 - 1 [facility] Platelet # Bld Auto 249.0 x1000/uL Normal 06/13/2024 150 - 420 [facility] Basophils/leuk NFr Bld Auto 0.5 % Normal 06/13/2024 0 - 1.4 [facility] Hct VFr Bld Auto 41.1 % Normal 06/13/2024 38.5 - 50 [facility] Neutrophils/leuk NFr Bld Auto 56.3 % Normal 06/13/2024 39 - 72 [facility] WBC # Bld Auto 6.1 x1000/uL Normal 06/13/2024 4 - 11 [facility] Monocytes # Bld Auto 0.45 x 1000/uL Normal 06/13/2024 0 - 1 [facility] Eosinophil/leuk NFr Bld Auto 2.6 % Normal 06/13/2024 0 - 5 [facility] Monocytes/leuk NFr Bld Auto 7.4 % Normal 06/13/2024 4 - 12 [facility] Imm Granulocytes # Bld Auto 0.02 x 1000/uL Normal 06/13/2024 0 - 0.3 [facility] Lymphocytes # Bld Auto 1.99 x 1000/uL Normal 06/13/2024 0.6 - 3.7 [facility] nRBC # Bld Auto 0.0 x 1000/uL Normal 06/13/2024 0 - 1 [facility] RDW RBC Auto-Rto 12.2 % Normal 06/13/2024 11 - 15 [facility] Neutrophils # Bld Auto 3.4 x 1000/uL Normal 06/13/2024 2 - 7.6 [facility] Eosinophil # Bld Auto 0.16 x 1000/uL Normal 06/13/2024 0 - 1 [facility] Basophils # Bld Auto 0.03 x 1000/uL Normal 06/13/2024 0 - 1 [facility] Lymphocytes/leuk NFr Bld Auto 32.9 % Normal 06/13/2024 17 - 50 [facility] RBC # Bld Auto 4.57 M/uL Normal 06/13/2024 4 - 6 [facility] History of Medication Use Medication Directions Dispensed Refills Start Date End Date Stat predniSONE (DELTASONE) 20 mg tablet Take 2 tablets (40 mg total) by mouth daily for 2 days, THEN 1.5 tablets (30 mg total) daily for 2 days, THEN 1 tablet (20 mg total) daily for 2 days, THEN 0.5 tablets (10 mg total) daily for 2 days. Take with food.. 06/17/2024 06/26/20 active famotidine (PEPCID) tablet 20 mg 20 mg, Oral, 2 Times Daily Scheduled, First dose on Fri06/15/24 at 1545Common Side Effects: Dizziness, headache, stomach upset, confusion.Pharmacis t will implement [facility] Renal Dose Adjustment Protocol unless otherwise specified: Implement ProtocolProtocol: [email or web address].[email or web address]/PGPSCS/Jairo col 06/15/2024 06/16/20 aborted polyethylene glycol (MIRALAX) packet 17 g 17 g, Oral, Daily, First dose on Fri06/15/24 at 1215For 17g dose: Dissolve in 4 - 8 oz of water, juice, soda, coffee, or tea. For BOWEL PREP FOR COLONOSCOPY/FLEX SIG: Dissolve 119g (7 packets) in 32 ounces of clear sports drink or other clear liquid Common Side Effects: Diarrhea, discomfort, cramps 06/15/2024 06/16/20 active predniSONE (DELTASONE) tablet 40 mg 40 mg, Oral, Daily, First dose on Fri06/15/24 at 1545Common Side Effects: Insomnia, mood changes, elevated blood sugar. 06/15/2024 06/16/20 aborted sodium chloride 0.9% infusion 50 mL/hr, Intravenous, CONTINUOUS, Starting on Fri06/15/24 at 1000 06/15/2024 06/15/20 aborted ketorolac (TORadol) injection 15 mg 15 mg, IV Push, EVERY 6 HOURS PRN, mild Pain (PIS 1-3), for adult patients may also give for higher pain score per patient preference, Starting on Fri06/13/24 at 2144, For 5 daysMaximum IV Push dose of 30 mg. If ordered IV Push, administer undiluted over 15 seconds. Common Side Effects include stoma 06/14/2024 06/19/20 active acetaminophen (TYLENOL) tablet 650 mg 650 mg, Oral, EVERY 6 HOURS PRN, mild Pain (PIS 1-3), for adult patients may also give for higher pain score per patient preference, temperature > 101 F (38.3 C), Starting on Fri06/13/24 at 2143Maximum dose of acetaminophen is 4000 mg from all sources in 24 hours. 06/14/2024 06/16/20 aborted enoxaparin (LOVENOX) syringe 40 mg 40 mg, Subcutaneous, Every 24 Hours Scheduled (Daily), First dose on Fri06/14/24 at 0900Contraindicated with epidural use. Common Side Effects: Bruising, minor and major bleeding. 06/14/2024 06/16/20 aborted melatonin tablet 3 mg 3 mg, Oral, Nightly PRN, insomnia, Starting on Fri06/13/24 at 2144Recommended to administer at least 60 minutes prior to intended bedtime 06/14/2024 06/16/20 active morphine syringe 2 mg 2 mg, Subcutaneous, EVERY 4 HOURS PRN, severe Pain (PIS 7-10), Starting on Fri06/13/24 at 2144, For 2 daysIf patient unable to take PO or has inadequate response 1 hour after the administration of the oral medication for moderate pain. If ordered IV Push: Administer undiluted (or dilute with 0.9 % s 06/14/2024 06/16/20 completed traMADoL (ULTRAM) tablet 50 mg 50 mg, Oral, EVERY 6 HOURS PRN, moderate Pain (PIS 4-6), for adult patients may also give for higher pain score per patient preference, Starting on Fri06/13/24 at 2143Maximum dose of tramadol is 400 mg in 24 hours (300 mg in 24 hours if age > 75 years; 200 mg in 24 hours if CrCl < 30 mL/min or hemod 06/14/2024 06/15/20 aborted ondansetron (ZOFRAN-ODT) disintegrating tablet 4 mg 4 mg, Translingual, ONCE, On Fri06/13/24 at 2000, For 1 doseCommon Side Effects: Lightheaded, stomach upset, headache. 06/14/2024 06/14/20 completed oxyCODONE (ROXICODONE) Immediate Release tablet 10 mg 10 mg, Oral, ONCE, On Fri06/13/24 at 2000, For 1 doseCommon Side Effects: Confusion, nausea, vomiting, drowsiness, constipation, breathing problems. 06/14/2024 06/14/20 completed tiZANidine (ZANAFLEX) tablet 2 mg 2 mg, Oral, ONCE, On Fri06/13/24 at 2100, For 1 dose 06/14/2024 06/14/20 completed cyclobenzaprine (FLEXERIL) tablet 10 mg 10 mg, Oral, EVERY 12 HOURS, First dose (after last modification) on Fri06/15/24 at 2100 06/13/2024 06/22/20 aborted sodium chloride 0.9 % flush 2.5 mL 2.5 mL, Intravenous, PRN for Line Care, line care, Before and after administration of intravenous fluids, medications and blood products and/or blood specimen collection; As needed to assess catheter patency, Starting on Fri06/13/24 at 1857 06/13/2024 06/16/20 aborted diazePAM (VALIUM) tablet 5 mg 5 mg, Oral, ONCE, On Fri06/13/24 at 1445, For 1 doseCommon Side Effects: Confusion, dizziness, drowsiness, mood changes. 06/13/2024 06/13/20 completed iohexoL (OMNIPAQUE) 350 mg iodine/mL injection 75 mL 75 mL, Intravenous, IMG ONCE PRN, other, Starting on Fri06/13/24 at 1856, For 1 doseVesicant agents may cause severe tissue damage, including necrosis, if they extravasate into tissue; Common Side Effects: Headache, nausea, allergic reaction. 06/13/2024 06/13/20 completed ketorolac (TORadol) injection 30 mg 30 mg, Intramuscular, ONCE, On Fri06/13/24 at 1445, For 1 doseMaximum IV Push dose of 30 mg. If ordered IV Push, administer undiluted over 15 seconds. Common Side Effects include stomach upset, dizziness and increased bleeding risk. Maximum duration of therapy is 5 days. This drug may be automatic 06/13/2024 06/13/20 completed predniSONE (DELTASONE) tablet 60 mg 60 mg, Oral, ONCE, On Fri06/13/24 at 1700, For 1 doseCommon Side Effects: Insomnia, mood changes, elevated blood sugar. 06/13/2024 08/04/20 24 completed sodium chloride 0.9% large volume syringe for autoinjector 60 mL 60 mL, Intravenous, IMG ONCE PRN, other, Imaging, Starting on 06/13/24 at 1857, For 1 dose 06/13/2024 06/13/20 24 completed EPINEPHrine 0.3 mg/0.3 mL IJ auto-injection Inject 0.3 mL (0.3 mg total) into the shoulder, thigh, or buttocks once as needed for anaphylaxis. 02/14/2019 active acyclovir (ZOVIRAX) 5 % ointment Apply topically as needed. suspended acyclovir (ZOVIRAX) 5 % ointment Apply 1 each topically as needed. active fexofenadine (DAVID) 180 MG tablet Take 180 mg by mouth daily. active valACYclovir (VALTREX) 500 mg tablet Take 1 tablet (500 mg total) by mouth daily. suspended valACYclovir (VALTREX) 500 MG tablet Take 500 mg by mouth daily. active Problems Problem Status Onset Date Problem Type Date of Resoluti on Source Back pain, unspecified back location, unspecified back pain laterality, unspecified chronicity active 2024-06-13 ProblemAct [facility] Sore throat active EncounterDiagnosisAct [facility] Encounters Encounter Type Encounter Reason Primary Diagnosis Location Date Inpatient Backache, unspecified Backache, unspecified 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 08/24/2023 08/24/2023
== END 2025-10-18 14:30 | disposition home or self-care (01) ==
LOC: HO.HMCC 13:39
PROVIDERS: PCP Internal Medicine; Visit Provider Internal Medicine
DX: Z00.01 Encounter for general adult medical examination with abnormal findings (principal); R12 Heartburn; M75.101 Unspecified rotator cuff tear or rupture of right shoulder, not specified as traumatic; M12.811 Other specific arthropathies, not elsewhere classified, right shoulder; F41.8 Other specified anxiety disorders; R53.82 Chronic fatigue, unspecified; B00.1 Herpesviral vesicular dermatitis

== ENCOUNTER → 2025-10-18 13:38 | Outpatient (BNVA) | payer OTHER, SELFPAY | PROVIDERS: PCP Internal Medicine; Visit Provider Internal Medicine | DX: Z00.01 Encounter for general adult medical examination with abnormal findings (principal); B00.1 Herpesviral vesicular dermatitis; R53.82 Chronic fatigue, unspecified; M75.101 Unspecified rotator cuff tear or rupture of right shoulder, not specified as traumatic; M12.811 Other specific arthropathies, not elsewhere classified, right shoulder; R12 Heartburn; Z13.31 Encounter for screening for depression | CPT/HCPCS: 96127; 99212; 99497 ==

== ENCOUNTER 2025-10-22 13:24 | Outpatient (REF) | payer OTHER, SELFPAY ==
--- NOTE | ~2025-10-22 | XR_ITS ---
EXAMINATION: XR SHOULDER, RIGHT CLINICAL INFORMATION: M75.101 - Unspecified rotator cuff tear or rupture of right shoulder, no... COMPARISON: None available. TECHNIQUE: Three views of the right shoulder. FINDINGS: No acute fracture, dislocation or suspicious bony lesion. No significant joint space narrowing... No abnormal soft tissue calcifications. XR/XR shoulder RT min 2V IMPRESSION: No acute findings. Electronically signed by: Joe Mckeon MD 10/24/2025 07:40 AM [facility]
--- OUTSIDE RECORDS SUMMARY | 2025-10-22 13:28 | XMS_ITS | Clinical Summary ---
Author Organization [facility] Address [address] [place] [id number] Phone Care Team Providers Care Charting Clerk Name Role Phone Joanan Wells MD Primary Care Provider Allergies No [...] Not on file [place] [facility] [place] Address: [address] [address] Care Teams Charting Clerk Relationship Specialty Start Date End Date Joanna Wells MD [address] [place] [id number] PCP - General Internal Medicine 09/02/21 Additional Source Comments The information contained in this document represents components of the legal health record. It is not the complete legal health record.[facility]
--- OUTSIDE RECORDS SUMMARY | 2025-10-22 13:28 | XMS_ITS | Clinical Summary ---
Author Organization [facility] Address [address] [place] [address] Care Team Providers Care Student Activities Director Name Role Phone Joanna Wells MD Primary [...] to complete this topic Insurance [employer] [facility] Care Teams Student Activities Director Relationship Specialty Start Date End Date Joanna Wells MD [address] [place] [phone] PCP - General Internal Medicine 04/30/24
--- OUTSIDE RECORDS SUMMARY | 2025-10-22 13:28 | XMS_ITS | Clinical Summary ---
Author Organization [facility] [address] [facility] Address [address] [place] [address] Phone Care Team Providers Care Consumer Advocate Name Role Phone Unavailable Primary Care Provider [...] Years Used Date Smoking Tobacco: Never Assessed [facility] Utilities Answer Date Recorded In the past 12 months has [employer], gas, oil, or water [employer] threatened to shut off services in your [...]
[2025-10-22 15:28] LABS: MANUAL DIFF FLAG NO
[2025-10-22 15:30] LABS: Hematocrit 41.0 % (42.0-52.0); Hemoglobin 14.2 g/dl (14.0-18.0); Imm Gran Abs Auto 0.02 X10*3/uL (0.00-0.03); Imm Gran Pct Auto 0.4 % (0.0-0.4); Lymphocytes Absolute Auto 0.7 X10*3/uL (1.2-4.9); Mean Corpuscular HGB Conc 34.6 g/dl (31.0-36.0); Mean Corpuscular Hemoglobin 30.7 pg (27.0-33.0); Mean Corpuscular Volume 88.6 fL (80.0-98.0); NRBC Abs Auto 0.000 X10*3/uL (0.0-0.012); NRBC Pct Auto 0.0 /100WBC (0.0-0.2); Platelet Count 200 X10*3/uL (160-400); Red Blood Count 4.63 X10*6/uL (4.60-5.80); White Blood Count 5.0 X10*3/uL (4.8-10.8)
[2025-10-22 15:49] LABS: Cholesterol 172 mg/dL (<200); HDL Cholesterol 48 mg/dL (>40); Triglycerides 126 mg/dL (<150)
[2025-10-22 16:19] LABS: Folate 6.2 ng/mL (> or = 4.0); Vitamin B12 677 pg/mL (200-900)
== END 2025-10-22 13:25 | disposition home or self-care (01) ==
LOC: HO.HMGCLDS 13:24
PROVIDERS: PCP Internal Medicine; Visit Provider Internal Medicine
DX: Z00.00 Encounter for general adult medical examination without abnormal findings (principal); M75.101 Unspecified rotator cuff tear or rupture of right shoulder, not specified as traumatic; M12.811 Other specific arthropathies, not elsewhere classified, right shoulder; R53.83 Other fatigue; R53.82 Chronic fatigue, unspecified; B00.1 Herpesviral vesicular dermatitis; R12 Heartburn; Z13.6 Encounter for screening for cardiovascular disorders
CPT/HCPCS: 36415; 73030; 80061; 82306; 82607; 82746; 84207; 84402; 84403; 84443; 85025

== ENCOUNTER → 2025-10-22 13:29 | Outpatient (BNV) | payer OTHER, SELFPAY | PROVIDERS: PCP Internal Medicine; Visit Provider Radiology Diagnostic Ultrasound | DX: M75.101 Unspecified rotator cuff tear or rupture of right shoulder, not specified as traumatic (principal) | CPT/HCPCS: 73030 ==